=== PATIENT | female | born 1970 | race Caucasian/White ===

== ENCOUNTER 2020-04-13 12:40 | Outpatient (CLI) | payer OTHER ==
--- NOTE | 2020-04-13 15:51 | MRI ---
MRI OF THE RIGHT SHOULDER 04/13/20 PROVIDED CLINICAL HISTORY: Right shoulder pain. FINDINGS: There is minimal undersurface irregularity/very low grade partial thickness undersurface tearing invo lving the posterior distal supraspinatus tendon near the foot plate. The components of the rotator cu ff appear otherwise intact. Long head biceps tendon appears intact and normally located. There is a moderate glenohumeral joint effusion. The glenoid labrum and glenohumeral articular cartil age appear preserved. There is greater than physiologic subacromial subdeltoid bursal fluid. Mild acromioclavicular joint o steoarthrosis without significant mass effect upon the subjacent supraspinatus. No focal concerning r egional marrow or muscular signal abnormality is evident. IMPRESSION: 1. Undersurface irregularity/very low grade partial thickness undersurface tearing involving the posterior distal supraspinatus tendon near the foot plate. 2. Moderate glenohumeral joint effusion. 3. Mild subacromial subdeltoid bursal fluid. POS: LO
== END 2020-04-13 12:41 | disposition home or self-care (01) ==
LOC: TBSIIMAG 12:40
PROVIDERS: ATTEND Orthopaedic Surgery
DX: M75.111 Incomplete rotator cuff tear or rupture of right shoulder, not specified as traumatic (principal); M25.411 Effusion, right shoulder